=== PATIENT | male | born 1975 | race Caucasian/White ===

== ENCOUNTER 2017-01-18 14:45 | Emergency (ER) | payer OTHER ==
[~2017-01-18] VITALS: Ht 172.7 cm; Wt 86.4 kg
[2017-01-18 14:46] VITALS: BP 111/66; PULSE 99; RESP 15; O2SAT 100
--- NOTE | 2017-01-18 15:25 | ED.REPORT ---
HPI-Rash / Abscess Date of Service Jan 18, 2017 ED Provider: Isrrael Quiñones MD Pt is an otherwise healthy 41 year old male who presents to the ED with swelling in his right arm onset yesterday morning. He c/o associated nausea, pain and erythema, and dizziness. The pt denies fever and swelling in his legs. Pt reports that he thinks that he got "bit or stung" resulting in his symptoms. He is up to date on his tetanus shots and denies having similar symptoms previously. The pt denies using IV drugs and has not been on antibiotics recently. Nursing Notes Stated Complaint: BITE ON RIGHT ARM Chief Complaint: Skin Rash/Abscess Nursing Notes Reviewed: Yes ([employer], [employer] not reconciled) Allergies: Coded Allergies: No Known Allergies (Verified , 01/18/17) Scheduled Clindamycin (Clindamycin) 300 Mg Capsule 300 MG PO QID Lactobacillus Acidophilus (Probiotic) 1 Each Capsule 1 EACH PO DAILY Scheduled PRN Hydrocodone-Acetaminophen 5-325 mg (Hydrocodone-Acetaminophen 5-325 mg) 1 Each Tablet 1-2 TABLET PO Q4H PRN PRN For Pain General Time Seen by MD: 15:22 Chief Complaint Other (Swelling in right arm) Hx Obtained From: Patient Arrived By: Walk-in Onset Occurred: Yesterday Symptom Duration: Since onset Quality: Painful Severity: Current: Moderate Severity: Maximum: Moderate Recent Healthcare: No recent doctor visit, No recent hospitalization Similar Sx Previous: No Past Medical History Past Medical History Healthy Past Surgical History Left inguinal hernia L leg surgery Smoking History Current Every Day Smoker, Heavy Tobacco Smoker Social History Alcohol Use: 1-3 per day Drug Use: Denies drug use Ambulatory Status Independent Review of Systems + Erythema on his right arm Constitutional: Denies: Fever GI: Reports: Nausea, Denies: Vomiting Musculoskeletal: Reports: Extremity pain Skin: Denies Swelling Complete sys rev & neg: except as marked. Neurologic: Reports: Dizziness Physical Exam Initial Vital Signs Vital Signs (First) Date Time Temp Pulse Resp B/P Pulse Ox O2 Delivery O2 Flow Rate FiO2 01/18/17 14:46 36.9 99 15 111/66 100 Room Air Initial VS: Reviewed, Vital signs normal Head / Eyes: Atraumatic, Normocephalic, PERRL ENT: Mucous membranes moist, Conjunctiva normal, No scleral icterus Neck: Supple, Full range of motion Abdomen / GI: Soft, Non-tender Extremities: Vascular intact, Neuro intact Neurologic: Alert, Oriented, Nonfocal Psychiatric: Mood/affect normal, Behavior normal General/Constitutional: Awake, Alert, Cooperative, Not toxic appearing Skin: Dry, Intact Respiratory / Chest: Atraumatic Few scattered wheezes Cardiovascular: Heart rate NL, Regular rhythm, Heart sounds NL, No murmurs Upper Extremity / MS: Full range of motion, Neurologic intact, Vascular intact Cameron cellulitis involving proximal antecubital fossa with induration. Entire anterior portion of arm and forearm. No signs of clinical abscess. Possible track mckeon, but pt denies use of IV drugs. Re-Eval/Medical Decision Med Decision/Clinical Course Since a 41-year-old male presents with redness swelling and pain in the right arm. He thought he may been bitten by something, and presents with a severe cellulitis of the right upper extremity. The patient adamantly denies IV drug use, although the area of infection is just above the afebrile fossa, left arm couple mckeon of suspicious for at least the possibility of tract mckeon. I do not appreciate a ann abscess or anything amenable to incision and drainage, but there is a sizable area of cellulitis on the right upper cavity. There are no other areas of infection evident on exam. The patient does not appear toxic , is not febrile, is not tachycardic, has no murmurs. The patient's been started on clindamycin and received a loading dose parenterally. Patient is being discharged and a 10 day course of clindamycin, some probiotics , and #15 hydrocodone for when necessary pain control. Routine precautions reviewed. It was explained to the patient there is a distinct possibility of developing an abscess in the area of induration is currently present, and that if he is not clearly improving, or signs of an abscess occur, he is to return directly to the emergency department for repeat evaluation, and possible drainage Patient is discharged in stable condition. Source of Hx: Old records Re-Evaluation/Progress : Time of Eval: 15:46 Re-Evaluation/Progress Note: Pt rechecked. Informed pt of plan for discharge. Pt understands and agrees with plan for discharge. F/U instructions and RTER warnings given. All questions addressed. Differential Diagnosis: Positive: Cellulitis, Negative: Abscess, Anorectal abscess, Hand, foot, mouth disease, Herpes zoster/simplex, Kawasaki's disease, Perirectal abscess, Psoriasis, Waqar mt spotted fever, Scabies, Scarlet fever Counseled Regarding: Diagnosis, Need for follow-up, When/why to return to ED Discharge & Departure Impression: Primary Impression: Cellulitis Site of cellulitis: extremity Site of cellulitis of extremity: upper extremity Laterality: right Qualified Code: L03.113 - Cellulitis of right upper limb Disposition: Home Discharge Condition All VS Reviewed: Yes Condition: Stable Patient Instructions: Cellulitis (ED) Additional Instructions: 1. This type of skin infection is called "cellulitis". 2. You received an injection of the antibiotic clindamycin. 3. Continue clindamycin - take 300mg at bedtime, then take 300mg four times a day starting tomorrow for 10 days. 4. It usually takes ~36 hours after starting antibiotics for symptoms to improve. If worsening, or if not clearly improving - return to the ED. There is a chance an abscess may develop - if this occurs, it will need to be drained and you will need to return to the ED to have it drained in order for it to heal. 5. Take ibuprofen 400-800mg three times a day for pain. 6. If needed for more severe pain take hydrocodone/APAP 5/325 1-2 tabs up to every 4-6 hours for pain. NOTE: This medication contains a narcotic and causes drowsiness. NO driving for at least 4 hours after taking. 7. These days we generally recommend that you also take a "probiotic" to replace the normal intestinal bacteria that are also killed by the antibiotic. Take a probiotic daily and continue for ~10 days after completing the antibiotic. Referrals: José Luo MD (PCP) [place] Attestation Portions of this note were transcribed by Merle Aburto. I, Dr. Quiñones personally performed the history, physical exam and medical decision-making; I reviewed and confirmed the accuracy of the information in the transcribed note. Signed by: Tara Lopez, 01/18/17 and 15:50. copies to: José Luo MD, Matthew F MD Jan 18, 2017 15:25 Merle Velasco Jan 18, 2017 15:37
[2017-01-18] MEDS ORDERED: HYDROcodone-APAP 5-325 mg Tablet PO ONE (15:35)
[2017-01-18] MEDS ORDERED: Clindamycin 150 mg/mL 2 mL Inj IM ONE (15:35)
[2017-01-18] MEDS ORDERED: CLIN-78 PO (15:39)
[2017-01-18] MEDS ORDERED: LACT1CAP65 PO (15:39)
[2017-01-18] MEDS ORDERED: HYDR-4003 PO (15:39)
== END 2017-01-18 15:56 | disposition home or self-care (01) ==
LOC: SED 14:45
DX: L03.113 Cellulitis of right upper limb (principal); F17.200 Nicotine dependence, unspecified, uncomplicated
CPT/HCPCS: 96372; 99283; J3490